=== PATIENT | female | born 1955 | race Caucasian/White ===

== ENCOUNTER 2019-07-04 06:53 | Day surgery (SDC) | payer BC ==
[~2019-07-04] VITALS: Ht 170.2 cm; Wt 81.2 kg
[2019-07-04] VITALS (17 sets, daily range): BP systolic 103–142; BP diastolic 52–68
--- NOTE | 2019-07-04 07:18 | Pre-Procedure Note/Attestation ---
Pre-Procedure Note/Attestation Complete Prior to Procedure Planned Procedure: not applicable Procedure Narrative: colonoscopy Indications for Procedure Pre-Operative Diagnosis: screening colon Attestation I attest that I discussed the nature of the procedure; its benefits; risks and complications; and alternatives (and the risks and benefits of such alternatives ), prior to the procedure, with the patient (or the patient's legal district sales representative). I attest that, if there was a reasonable possibility of needing a blood transfusion, the patient (or the patient's legal district sales representative) was given the [facility] standardized written summary, pursuant to the Sukhdev Miguel Blood Safety Act ([place] Health and Safety Code # 1645, as amended). I attest that I re-evaluated the patient just prior to the surgery and that there has been no change in the patient's H&P, except as documented below: Neri Rivera MD Jul 04, 2019 07:18
--- NOTE | 2019-07-04 07:19 | Short Stay Surgery H&P ---
History of Present Illness History of Present Illness Chief Complaint screening colonoscopy HPI Zoë Cartwright is a 64 year old female who was admitted on for Screening Colonoscopy Patient History Allergies: Coded Allergies: No Known Allergies (Unverified , 07/03/19) Review of Systems Cardiovascular: Reports: no symptoms Respiratory: Reports: no symptoms Skeletal: Reports: no symptoms Gastrointestinal: Reports: no symptoms Genitourinary: Reports: no symptoms Neurologic: Reports: no symptoms Endocrine: Reports: no symptoms Physical Exam Skin: normal HENT: normal Heart: normal Lungs: normal Abdomen: normal Extremities: normal Plan Plan of Care colonoscopy Attestation Are the patient's medical conditions optimized for surgery? Attestation Response: yes Neri Rivera MD Jul 04, 2019 07:19
[2019-07-04] MEDS ORDERED: VITAMIN D1000 UNI1 ORAL (07:23)
[2019-07-04] MEDS ORDERED: ATORVASTATIN CA40 MG ORAL (07:23)
[2019-07-04] MEDS ORDERED: CALCIUM500 M2 PO (07:23)
[2019-07-04] MEDS ORDERED: fentaNYL 100 mcg/2 mL IV ONE (07:26)
[2019-07-04] MEDS ORDERED: Midazolam 2mg/2ml Inj ONE (07:27)
--- NOTE | 2019-07-04 08:03 | Moderate Sedation - Procedural ---
Moderate Sedation HPI Home Medication Reported Medications Calcium Carbonate (CALCIUM) 500 Mg Tablet, 500 MG PO DA, TAB 07/04/19 Cholecalciferol (Vitamin D3)* (VITAMIN D*) 1,000 Unit Tablet, 1000 UNIT ORAL DAILY, #30 TAB 07/04/19 Atorvastatin Calcium* (ATORVASTATIN CALCIUM*) 40 Mg Tablet, 40 MG ORAL BEDTIME, TAB 07/04/19 Patient History Allergies: Coded Allergies: No Known Allergies (Unverified , 07/03/19) Pre-Procedural Mod Sedation Date: Jul 04, 2019 Pre-Assessment Time: 08:02 Pre-Sedation Assessment: Elective Airway Assessment (Malampati): II Heart: normal Lungs: normal Abdomen: normal Extremities: normal Pre-op Diagnosis: screening colon Evaluation Hx of untoward rxns to mod sed: No Procedures/Plans: Colonoscopy Plan for Moderate Sedation: Midazolam, Fentanyl ASA Score: II Informed Consent The nature of the procedure/sedation; its benefits; risks and complications; and alternatives (and the risks and benefits of such alternatives) were discussed with the patient (or their legal shipping services sales representative), prior to the procedure. All questions were answered to the patient's (or their legal shipping services sales representative's) satisfaction and the patient (or their legal shipping services sales representative) gave informed consent to the procedure. I attest that I re-evaluated the patient just prior to the surgery and that there has been no change in the patient's H&P, except as documented below: Post Procedure Assessment Post Procedure TIme: 08:38 Communication: No Apparent Limitation Mental Status: Awake Respiration: Unlabored Skin Condition: WNL Adomen: WNL Nausea: NO Vomiting: NO Neri Rivera MD Jul 04, 2019 08:03
[2019-07-04] MEDS ORDERED: fentaNYL 100 mcg/2 mL IV SCH (08:05)
[2019-07-04] MEDS ORDERED: Midazolam 2mg/2ml Inj IVP SCH (08:05)
[2019-07-04] MEDS ORDERED: Atropine Sulfate 0.4mg/ml inj IVP SCH (08:10)
[2019-07-04 08:37] LABS: CHOLESTEROL 117 MG/DL (< 200); HDL CHOLESTEROL 55 MG/DL (40-60); TRIGLYCERIDES 38 MG/DL (30-150)
--- NOTE | 2019-07-04 08:37 | Endoscopy Procedure Note ---
Endoscopy Procedure Note General Indication for Procedure: screening Procedures Performed: colonoscopy Operative Findings/Diagnosis: 5 polyps Specimen: yes Pt Tolerated Procedure Well: Yes Estimated Blood Loss: none Anesthesia Anesthesiologist: none Anesthesia: moderate sedation Medications Medication Given: midazolam, fentanyl Inserted Devices Implant(s) used?: No Quality Quality of Bowel Preparation: Excellent Did scope reach the cecum?: Yes Was there any complications?: No GI Core Measures 50 yrs or older w/o bx or poly: No 10yrs. F/U recommended: Yes If not recommended, why?: Above average risk 18 years or older w/prev. colo: No Neri Rivera MD Jul 04, 2019 08:37
--- NOTE | 2019-07-04 09:30 | Procedure Note ---
DATE OF PROCEDURE: 07/04/2019 SURGEON: Neri Rivera M.D. PROCEDURE: Colonoscopy with biopsy. ANESTHESIA: A 4 mg of Versed and 50 mcg of Fentanyl IV and also the patient got 0.8 mg of atropine. REASON FOR PROCEDURE: The procedure, risks, benefits, and possible consequences, including hemorrhage, aspiration, perforation and infection, and alternative treatments, were explained to the patient/legal guardian by Dr. Neri Rivera and the patient/legal guardian understood and accepted these risks. DESCRIPTION OF PROCEDURE: After informed consent was obtained and the patient was adequately sedated, first rectal exam was performed which was positive for large external hemorrhoids and three small internal hemorrhoids. Then, the scope was advanced from rectum into the cecum then subsequently into the terminal ileum. Quality of prep was very excellent. The patient had total of 5 diminutive polyp in the transverse colon, all removed with the cold biopsy forceps technique. No other polyps were seen. No diverticulosis. Retroflexion of rectum showed evidence of small nonbleeding internal hemorrhoids. SUMMARY OF FINDINGS: 1. Five colonic polyp removed from transverse colon. See above for details. 2. Internal hemorrhoids. 3. Large external hemorrhoids. RECOMMENDATIONS: 1. Follow up pathology. 2. Recommend repeat colonoscopy in three years given five polyps. Neri Rivera M.D. DR: Anaya JOB#: [id number] CC:
[2019-07-04 10:02] LABS: ALANINE AMINOTRANSFERASE 31 U/L (12-78); ALBUMIN 3.7 G/DL (3.4-5.0); ALBUMIN/GLOBULIN RATIO 1.1 (1.0-2.7); ALKALINE PHOSPHATASE 85 U/L (46-116); ANION GAP 12 mmol/L (5-15); ASPARTATE AMINO TRANSFERASE 30 U/L (15-37); BILIRUBIN,TOTAL 0.8 MG/DL (0.2-1.0); BLOOD UREA NITROGEN 8 mg/dL (7-18); CALCIUM 9.6 MG/DL (8.5-10.1); CARBON DIOXIDE 24 MMOL/L (21-32); CHLORIDE 106 MMOL/L (98-107); CREATININE 0.7 MG/DL (0.55-1.30); POTASSIUM 3.8 MMOL/L (3.5-5.1); SODIUM 142 MMOL/L (136-145)
[2019-07-04 10:03] LABS: EOSINOPHILS % (AUTO) 3.9 % (0.0-3.0); HEMATOCRIT 42.7 % (37.0-47.0); HEMOGLOBIN 14.6 G/DL (12.0-16.0); LYMPHOCYTES % (AUTO) 28.9 % (20.0-45.0); MEAN CORPUSCULAR VOLUME 87 FL (80-99); MONOCYTES % (AUTO) 7.8 % (1.0-10.0); NEUTROPHILS % (AUTO) 58.5 % (45.0-75.0); PLATELET COUNT 125 K/UL (150-450); RED BLOOD COUNT 4.91 M/UL (4.20-5.40); RED CELL DISTRIBUTION WIDTH 11.3 % (11.6-14.8); WHITE BLOOD COUNT 5.5 K/UL (4.8-10.8)
--- NOTE | 2019-07-06 16:18 | Cardiology Report ---
APPROVED REPORT EKG Measurement Heart [id number] [id number] Sinus bradycardia Septal infarct, age undetermined Abnormal ECG
== END 2019-07-04 12:00 | disposition home or self-care (01) ==
LOC: GAS 06:53 → EEVIPCON 08:00 → GAS 12:00
DX: Z12.11 Encounter for screening for malignant neoplasm of colon (principal); K63.5 Polyp of colon; K64.8 Other hemorrhoids; K64.4 Residual hemorrhoidal skin tags; Z79.899 Other long term (current) drug therapy
CPT/HCPCS: 36415; 45380; 80053; 80061; 82306; 84439; 84443; 85025; 93005; J2250; J3010